=== PATIENT | female | born 1955 | race Caucasian/White ===

== ENCOUNTER 2019-02-24 08:25 | Outpatient (CLI) | payer MEDICARE, BC | END 2019-02-24 23:59 | disposition home or self-care (01) | LOC: ROC 08:25 | PROVIDERS: ATTEND Radiology Radiation Oncology | DX: R91.1 Solitary pulmonary nodule (principal) | CPT/HCPCS: G0463 ==

== ENCOUNTER → 2019-04-28 | Outpatient (CLI) | payer MEDICARE, BC | END | disposition home or self-care (01) | LOC: ROC 08:06 | PROVIDERS: ATTEND Radiology Radiation Oncology | DX: C34.11 Malignant neoplasm of upper lobe, right bronchus or lung (principal); F17.200 Nicotine dependence, unspecified, uncomplicated | CPT/HCPCS: G0463 ==